=== PATIENT | female | born 1955 | race Caucasian/White ===

== ENCOUNTER → 2016-12-02 | Outpatient (CLI) | payer BC ==
[~2016-12-02] MED LIST: ASPIRIN 81MG TA81 MG PO; CALCIUM CARBON600 MG PO; FLAGYL 500MG.500 MG PO; FLEXERIL10 M1 PO; MECLIZINE12.5 M1 PO; NEOMYCIN OR; OMEPRAZOLE40 MG PO; VITAMIN B12500 MCG PO; VITAMIN D1000 IU PO
--- NOTE | 2016-12-04 13:20 | RADIOLOGY REPORT PS360 ---
CT CHEST W/O CONTRAST HISTORY: 6 MONTH F/U LUNG NODULE TECHNIQUE: Helical acquisition obtainedwithout contrast. Axial, sagittal, and coronal reformatted images are generated and reviewed. COMPARISON: 05/30/2016 FINDINGS: Paraseptal and centrilobular emphysematous changes are once again noted. Asymmetric increased density is present in the right apex similar when compared to the previous exam likely representing fibrotic changes. Continued 6 month follow-up recommended to confirm one-year stability. Calcified granuloma right upper lobe. 4 mm left upper lobe nodule unchanged. Subpleural nodular opacities are present in both upper lobes and are unchanged. No new nodules are evident. No lobar consolidation or collapse. Scattered small nodes present in the mediastinum and ermias unchanged. There has been interval cholecystectomy. IMPRESSION: 1. Stable CT appearance of the chest. 2. Obstructive chronic bronchitis with emphysematous change and scattered fibrotic changes greater in the right upper lobe is stable. No change upper lobe pulmonary nodules. Suggest continued 6 month follow-up to confirm one-year stability
== END ==
LOC: RAD 12-01 13:00
DX: R91.1 Solitary pulmonary nodule (principal)